=== PATIENT | male | born 1975 | race Caucasian/White ===

== ENCOUNTER → 2022-01-07 09:46 | Outpatient (CLI) | payer OTHER, SELFPAY ==
--- NOTE | 2022-01-07 | DI.NM.S_ITS ---
PROCEDURE: NM EXERCISE TREADMILL NON NUC COMPARISON: None. INDICATIONS: Essential (primary) hypertension; Other chest pain FINDINGS: Rest ECG sinus rhythm, nonspecific ST abnormality. [place] protocol 9: 00, maximum HR 174 bpm (100% peak predicted), maximum blood pressure 190/120, 10.1 METS, LAMIN +18%. Stress ECG sinus tachycardia, no ST segment changes or arrhythmias. The patient did not complain of exercise-induced chest pain. IMPRESSION: No evidence of exercise-induced ischemia or arrhythmia on ECG. Questionable rise in the diastolic blood pressure with exercise. Slightly reduced exercise capacity. Dictated by: Makayla Le D.O. on 01/07/2022 at 15:46 Approved by: Makayla Le D.O. on 01/07/2022 at 15:50
[2022-01-07 10:30] LABS: COVID19 -Nasal RAPID Negative (Negative)
== END ==
PROVIDERS: PCP Student in an Organized Health Care Education/Training Program; Referring Provider Student in an Organized Health Care Education/Training Program; Visit Provider Student in an Organized Health Care Education/Training Program
DX: R07.89 Other chest pain (principal); I10 Essential (primary) hypertension
CPT/HCPCS: 87635; 93017